=== PATIENT | female | born 1990 | race Two or more races ===

== ENCOUNTER → 2018-04-09 | Outpatient (CLI) | payer BC ==
[2018-04-09 11:07] LABS: Basophils # (auto) 0 uL; Eosinophils # (auto) 0.1 uL; Hemoglobin 11.5 g/dL (12.2-16.2); Lymphocytes # (auto) 1.3 uL; Monocytes # (auto) 0.4 uL; Nucleated Red Blood Cells % 0.1 %; Platelet Count (auto) 250 10^3/uL (140-450); Red Cell Distribution Width 16.4 % (11.8-14.3); White Blood Cell 7.6 10^3/uL (4.4-10.8)
[2018-04-09 11:09] LABS: Basophils % (auto) 0.3 % (0.0-2.0); Eosinophils % (auto) 1.7 % (0.0-7.0); Hematocrit 34.8 % (36.0-46.0); Lymphocytes % (auto) 16.5 % (10.0-50.0); Mean Corpuscular Hemoglobin 26.4 pg (28.0-32.0); Mean Corpuscular Hgb Conc. 33.1 g/dL (32.0-36.0); Mean Corpuscular Volume 79.7 fL (80.0-100.0); Monocytes % (auto) 5.6 % (0.0-12.0); Neutrophils # (auto) 5.8 uL; Neutrophils % (auto) 75.9 % (37.0-80.0); Red Blood Cells 4.37 10^6/uL (4.0-5.20)
[2018-04-09 11:23] LABS: Alcohol, Urine < 3.0 mg/dL (0-5); Amphetamine Screen, Urine NEGATIVE (NEGATIVE); Barbiturate Scree,Urine NEGATIVE (NEGATIVE); Benzodiazephine Screen, Urine NEGATIVE (NEGATIVE); Cannabinoid Screen, Urine NEGATIVE (NEGATIVE); Cocaine Screen, Urine NEGATIVE (NEGATIVE); Opiate Scree,Urine NEGATIVE (NEGATIVE); Phencyclidine Screen, Urine NEGATIVE (NEGATIVE)
== END | disposition home or self-care (01) ==
LOC: LAB 10:20
PROVIDERS: ATTEND Specialist
DX: Z34.82 Encounter for supervision of other normal pregnancy, second trimester (principal); Z20.2 Contact with and (suspected) exposure to infections with a predominantly sexual mode of transmission; Z3A.18 18 weeks gestation of pregnancy
CPT/HCPCS: 36415; 80307; 83036; 85025; 86762; 86850; 86900; 86901; 87086; 87340; 87591

== ENCOUNTER → 2018-06-26 | Outpatient (CLI) | payer BC ==
[2018-06-26 08:34] LABS: Eosinophils # (auto) 0.3 uL; Hemoglobin 10.6 g/dL (12.2-16.2); Neutrophils # (auto) 8.9 uL; Platelet Count (auto) 257 10^3/uL (140-450)
[2018-06-26 08:35] LABS: Basophils # (auto) 0 uL; Basophils % (auto) 0.3 % (0.0-2.0); Eosinophils % (auto) 2.9 % (0.0-7.0); Lymphocytes # (auto) 1.9 uL; Mean Corpuscular Hemoglobin 24.8 pg (28.0-32.0); Mean Corpuscular Hgb Conc. 32.2 g/dL (32.0-36.0); Mean Corpuscular Volume 76.8 fL (80.0-100.0); Monocytes # (auto) 0.8 uL; Monocytes % (auto) 6.6 % (0.0-12.0); Neutrophils % (auto) 74.2 % (37.0-80.0); Red Blood Cells 4.29 10^6/uL (4.0-5.20); Red Cell Distribution Width 14.4 % (11.8-14.3)
== END | disposition home or self-care (01) ==
LOC: LAB 08:06
PROVIDERS: ATTEND Specialist
DX: O99.810 Abnormal glucose complicating pregnancy (principal); Z3A.31 31 weeks gestation of pregnancy
CPT/HCPCS: 36415; 82951; 85025

== ENCOUNTER → 2018-07-23 | Outpatient (CLI) | payer BC ==
[2018-07-23 11:13] LABS: Eosinophils # (auto) 0.2 uL
[2018-07-23 11:16] LABS: Basophils # (auto) 0 uL; Basophils % (auto) 0.5 % (0.0-2.0); Eosinophils % (auto) 2.6 % (0.0-7.0); Hematocrit 32.3 % (36.0-46.0); Hemoglobin 10.6 g/dL (12.2-16.2); Lymphocytes # (auto) 1.6 uL; Lymphocytes % (auto) 17.8 % (10.0-50.0); Mean Corpuscular Hemoglobin 24.3 pg (28.0-32.0); Mean Corpuscular Hgb Conc. 32.7 g/dL (32.0-36.0); Mean Corpuscular Volume 74.2 fL (80.0-100.0); Monocytes # (auto) 0.6 uL; Monocytes % (auto) 6.8 % (0.0-12.0); Neutrophils # (auto) 6.4 uL; Neutrophils % (auto) 72.3 % (37.0-80.0); Platelet Count (auto) 237 10^3/uL (140-450); Red Blood Cells 4.36 10^6/uL (4.0-5.20); White Blood Cell 8.8 10^3/uL (4.4-10.8)
== END | disposition home or self-care (01) ==
LOC: LAB 10:43
PROVIDERS: ATTEND Specialist
DX: Z34.83 Encounter for supervision of other normal pregnancy, third trimester (principal); Z3A.35 35 weeks gestation of pregnancy
CPT/HCPCS: 36415; 85025; 86592; 87081

== ENCOUNTER 2018-08-21 08:18 | Inpatient (IN) | payer BC ==
[~2018-08-21] VITALS: Ht 170.2 cm; Wt 94.3 kg
[2018-08-21] MEDS ORDERED: PREN-96 PO (08:39)
[2018-08-21] MEDS ORDERED: WITCH HAZEL-GLYCERIN PAD TOP PRN (09:30)
[2018-08-21] MEDS ORDERED: PHISODERM TOP SOLN 240ML BTL TOP PRN (09:30)
[2018-08-21] MEDS ORDERED: NALBUPHINE HCL 10 MG/1ml INJECTION IV PRN (09:30)
[2018-08-21] MEDS ORDERED: PENICILLIN G POT 5MIL/D5 50ML 50 ML IV ONE (09:30)
[2018-08-21] MEDS ORDERED: DERMOPLAST 60ML BOTTLE TOP PRN (09:30)
[2018-08-21] MEDS ORDERED: LIDOCAINE 2%HCL (LOCAL ANESTH.) INJ 20ML MDV ID ONE (09:30)
[2018-08-21] MEDS: LACTATED RINGER'S 1,000 ML IV SCH ×3 (09:43→22:18)
[2018-08-21 10:20] LABS: Eosinophils # (auto) 0.2 uL; Hemoglobin 10.6 g/dL (12.2-16.2); Lymphocytes # (auto) 1.7 uL; Monocytes # (auto) 0.6 uL; White Blood Cell 9.9 10^3/uL (4.4-10.8)
[2018-08-21 10:20] LABS: Urine Bacteria NONE SEEN /hpf (None Seen); Urine Blood Negative /uL (Negative); Urine Mucus FEW (None Seen); Urine Specific Gravity 1.024 (1.001-1.035); Urine WBC 62 /hpf (0 - 5)
[2018-08-21 10:22] LABS: Basophils # (auto) 0.1 uL; Basophils % (auto) 0.5 % (0.0-2.0); Eosinophils % (auto) 1.7 % (0.0-7.0); Hematocrit 33.5 % (36.0-46.0); Lymphocytes % (auto) 17.1 % (10.0-50.0); Mean Corpuscular Hemoglobin 23.6 pg (28.0-32.0); Mean Corpuscular Hgb Conc. 31.6 g/dL (32.0-36.0); Mean Corpuscular Volume 74.7 fL (80.0-100.0); Monocytes % (auto) 6.4 % (0.0-12.0); Neutrophils # (auto) 7.3 uL; Neutrophils % (auto) 74.3 % (37.0-80.0); Nucleated Red Blood Cells % 0.1 %; Platelet Count (auto) 218 10^3/uL (140-450); Red Blood Cells 4.48 10^6/uL (4.0-5.20); Red Cell Distribution Width 17.1 % (11.8-14.3)
[2018-08-21 10:41] LABS: Albumin 2.7 g/dL (3.4-5.0); Calcium 8.5 mg/dL (8.5-10.1); Potassium 3.8 mmol/L (3.5-5.1)
[2018-08-21 10:44] LABS: Bilirubin, Total 0.2 mg/dL (0.2-1.0); Total Protein 6.7 g/dL (6.4-8.2)
[2018-08-21 10:55] LABS: INR < 0.93 (0.9-1.15)
[2018-08-21] MEDS: PENICILLIN G POTASSIUM 2,500,000 UNITS in D5W 5% 50 ML IV SCH ×3 (13:42→21:14)
[2018-08-21] MEDS ORDERED: LIDOCAINE 2%HCL (LOCAL ANESTH.) INJ 20ML MDV ID PRN (18:30)
[2018-08-21] MEDS ORDERED: LACT. RINGERS/OXYTOCIN 20UNITS 1,000 ML IV SCH (20:17)
[2018-08-21] MEDS ORDERED: LACTATED RINGER'S 1,000 ML IV ONE (20:33)
[2018-08-21] MEDS ORDERED: LIDOCAINE HCL 2 %PF INJ 10ML AMP IJ ONE (20:45)
[2018-08-21] MEDS ORDERED: ePHEDrine SULFATE 50 MG/ML AMP IV ONE (20:45)
[2018-08-21] MEDS ORDERED: fentaNYL W ROPIVACAINE 150 ML EPI SCH (20:45)
[2018-08-21] MEDS ORDERED: fentaNYL CITRATE 100 MCG/2 ML VL IV ONE (20:45)
[2018-08-21] MEDS ORDERED: NALOXONE HCL 0.4 MG/ML VIAL IV ONE (20:45)
[2018-08-22] MEDS: PENICILLIN G POTASSIUM 2,500,000 UNITS in D5W 5% 50 ML IV SCH (01:19)
[2018-08-22] MEDS ORDERED: IBUPROFEN 600 MG TAB PO PRN (03:30)
--- NOTE | 2018-08-22 05:00 | NUR ---
Ambulation: Patient OOB with standby assistance by RN. Patient ambulated to bathroom with steady gait. Patient able to void 700ML without difficulty. [facility] teaching provided with returned demonstration by patient. Clean gown provided and bed linen changed. Patient ambulated back to bed with steady gait and no distress noted.
[2018-08-22 06:37] VITALS: BP 115/65
[2018-08-22 11:13] VITALS: BP 108/69
[2018-08-22 12:10] LABS: RPR Non Reactive (Non Reactive)
--- NOTE | 2018-08-22 14:50 | NUR ---
Pt complaint of pain at IV site; IV is saline locked, site benign, free from redness or bruising. Education provided to patient on importance of maintaining IV access until discharge; pt verbalizes understanding and wants IV removed; Pt agrees to the insertion of new IV if the need should arise; IV dc'd with clean technique at this time; Catheter fully intact; pressure dressing applied.
[2018-08-22 15:30] VITALS: BP 133/71
[2018-08-22 19:30] VITALS: BP 131/65
[2018-08-22] MEDS ORDERED: OXYTOCIN 10UNIT/ML 1ML VIAL ONE (22:46)
[2018-08-22] MEDS ORDERED: LACT. RINGERS/OXYTOCIN 20UNITS 1,000 ML IV ONE (22:46)
[2018-08-22 23:20] VITALS: BP 109/67
[2018-08-23 03:00] VITALS: BP 115/73
[2018-08-23 06:45] VITALS: BP 109/68
--- NOTE | 2018-08-23 10:30 | NUR ---
Discharge: Discharge instructions given as ordered. Pt encouraged to follow up with PEDIATR[facility] ANESTH[facility]IOLOGIST as instructed. All questions and concerns addressed. Patient verbalized understanding. Medication reconciliation completed and copy given to patient. All required/requested vaccines given and copies of vaccinations given to patient. Patient encouraged to prepare to depart unit.
[2018-08-23 11:20] VITALS: BP 121/60
[2018-08-23 12:09] LABS: Rubella Antibodies, IgG 1.32 index (Immune >0.99)
--- NOTE | 2018-08-23 12:40 | NUR ---
Discharge: Patient ambulated to vehicle with all personal belongings, accompanied by staff and family members. No distress noted at time of departure, no adverse changes in status since initial assessment.
== END 2018-08-23 12:40 | disposition home or self-care (01) | DRG 807 ==
LOC: OBSVTOIN 08:18 → LDRP 08:18
PROVIDERS: ADMIT Specialist; ATTEND Specialist
PROC: 0KQM0ZZ Repair Perineum Muscle, Open Approach (ICD-10-PCS; principal; 2018-08-21)
PROC: 10D07Z6 Extraction of Products of Conception, Vacuum, Via Natural or Artificial Opening (ICD-10-PCS; 2018-08-21)
PROC: 3E0R3BZ Introduction of Anesthetic Agent into Spinal Canal, Percutaneous Approach (ICD-10-PCS; 2018-08-21)
PROC: 00HU33Z Insertion of Infusion Device into Spinal Canal, Percutaneous Approach (ICD-10-PCS; 2018-08-21)
PROC: 10907ZC Drainage of Amniotic Fluid, Therapeutic from Products of Conception, Via Natural or Artificial Opening (ICD-10-PCS; 2018-08-21)
PROC: 3E0P7VZ Introduction of Hormone into Female Reproductive, Via Natural or Artificial Opening (ICD-10-PCS; 2018-08-21)
DX: O99.824 Streptococcus B carrier state complicating childbirth (principal); Z37.0 Single live birth; Z3A.40 40 weeks gestation of pregnancy; O70.1 Second degree perineal laceration during delivery; O77.0 Labor and delivery complicated by meconium in amniotic fluid
CPT/HCPCS: 36415; 59025; 59409; 62282; 80053; 81001; 81002; 84112; 85025; 85610; 85730; 86592; 86762; 86850; 86900; 86901; 94760; 96365; 96366; G0378; J2540; J2590; J3010; J7060

== ENCOUNTER 2019-09-04 06:26 | Emergency (ER) | payer BC, MEDICAID ==
[~2019-09-04] VITALS: Ht 170.2 cm; Wt 96.2 kg
[~2019-09-04 06:26] MED LIST: PREN-96 PO
[2019-09-04 06:35] VITALS: BP 125/70
[2019-09-04 07:56] LABS: Basophils # (auto) 0.1 10 ^3/uL (0-0.2); Basophils % (auto) 0.7 % (0.0-2.0); Eosinophils # (auto) 0.3 10 ^3/uL (0-0.8); Eosinophils % (auto) 3.6 % (0.0-7.0); Hematocrit 42.2 % (36.0-46.0); Hemoglobin 13.9 g/dL (12.2-16.2); Lymphocytes # (auto) 1.9 10 ^3/uL (0.4-5.4); Lymphocytes % (auto) 25.9 % (10.0-50.0); Mean Corpuscular Hemoglobin 27.7 pg (28.0-32.0); Mean Corpuscular Hgb Conc. 32.9 g/dL (32.0-36.0); Mean Corpuscular Volume 84.2 fL (80.0-100.0); Monocytes # (auto) 0.4 10 ^3/uL (0-1.3); Monocytes % (auto) 5.7 % (0.0-12.0); Neutrophils # (auto) 4.8 10 ^3/uL (1.6-8.6); Neutrophils % (auto) 64.1 % (37.0-80.0); Nucleated Red Blood Cells % 0.3 %; Platelet Count (auto) 257 10^3/uL (140-450); Red Blood Cells 5.01 10^6/uL (4.0-5.20); Red Cell Distribution Width 14.5 % (11.8-14.3); White Blood Cell 7.5 10^3/uL (4.4-10.8)
[2019-09-04 08:12] LABS: Anion Gap 5 (5-15); Blood Urea Nitrogen 14 mg/dL (7-18); Calcium 8.8 mg/dL (8.5-10.1); Carbon Dioxide 25 mmol/L (21-32); Chloride 108 mmol/L (98-107); Glucose 86 mg/dL (74-106); Potassium 3.8 mmol/L (3.5-5.1); Sodium 138 mmol/L (136-145)
[2019-09-04 08:19] LABS: GFR African American 129 mL/min; GFR Non-African American 107 mL/min
== END 2019-09-04 08:46 | disposition home or self-care (01) ==
LOC: ER 06:26
DX: R07.89 Other chest pain (principal); F41.9 Anxiety disorder, unspecified; Z91.010 Allergy to peanuts
CPT/HCPCS: 36415; 71045; 80048; 84484; 85025; 93005